=== PATIENT | female | born 1985 | race Two or more races ===

== ENCOUNTER 2017-09-10 03:40 | Emergency (ER) | payer OTHER ==
[2017-09-10] MEDS ORDERED: TDAP ADULT 0.5 ML INJ (BOOSTRIX) IM ONE (04:30)
--- NOTE | 2017-09-10 04:32 | EDPHY ---
H & P Stated Complaint: LACERATION TO HEAD Time Seen by Provider: 09/10/17 04:06 HPI/ROS: HPI The patient presents with head injury which occurred at 3:30 a.m. this morning. 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 She did not lose consciousness, does not have any headache, nausea, vomiting, dizziness. She did have bleeding from her scalp and that is what brought her into the emergency department. She is unsure of her last tetanus vaccine. REVIEW OF SYSTEMS Constitutional: No fever, no chills. Skin: No rashes. Neurological: No headache. 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 PHYSICAL General Appearance: Alert, no distress Eyes: Pupils equal and round no pallor or injection Head: There is an abrasion to her occiput at the midline with small amount of active bleeding, no hematoma ENT, Mouth: Mucous membranes moist Respiratory: Breathing comfortably Neurological: A&O, moves all extremities Skin: Warm and dry, no rashes Musculoskeletal: Neck is supple non tender Extremities: symmetrical, full range of motion Psychiatric: Patient is oriented X 3, there is no agitation Source: Patient Exam Limitations: No limitations - Personal History Current Tetanus/Diphtheria Vaccine: No Current Tetanus Diphtheria and Acellular Pertussis (TDAP): No - Medical/Surgical History Hx Asthma: No Hx Chronic Respiratory Disease: No Hx Diabetes: No Hx Cardiac Disease: No Hx Renal Disease: No Hx Cirrhosis: No Hx Alcoholism: No Hx HIV/AIDS: No Hx Splenectomy or Spleen Trauma: No Other PMH: None - Social History Smoking Status: Never smoked Constitutional: Initial Vital Signs Temperature (C) 37.1 C 09/10/17 03:44 Heart Rate 80 09/10/17 03:44 Respiratory Rate 18 09/10/17 03:44 Blood Pressure 131/79 H 09/10/17 03:44 O2 Sat (%) 99 09/10/17 03:44 O2 Delivery Mode Room Air Allergies/Adverse Reactions: No Known Allergies Allergy (Verified 10/29/14 19:20) Home Medications: Medication Instructions Recorded Amphet Asp and D/Amphet [Adderall 10 mg PO DAILY 09/10/17 10 MG (*)] Medical Decision Making Differential Diagnosis: 32-year-old female presents from work with head injury, standing up in hitting her head on the corner of a bookshelf. By nexus 2 criteria, she does not meet criteria for CT scan of head. She has an abrasion of her scalp without any laceration or hematoma. Plan for update of her tetanus vaccine and have discussed wound care with her. Departure - Departure Disposition: Home, Routine, Self-Care Clinical Impression: Scalp abrasion Qualifiers: Encounter type: initial encounter Qualified Code(s): S00.01XA - Abrasion of scalp, initial encounter Head injury Qualifiers: Encounter type: initial encounter Qualified Code(s): S09.90XA - Unspecified injury of head, initial encounter Condition: Good Instructions: Scalp Contusion in Adults (ED) Referrals: Tavares Clarke MD [Primary Care Provider] - As per Instructions
[2017-09-10 04:44] VITALS: BP 126/76; PULSE 74; RESP 15; TEMP 98.2; O2SAT 95
== END 2017-09-10 04:43 | disposition home or self-care (01) ==
PROC: 3E0234Z Introduction of Serum, Toxoid and Vaccine into Muscle, Percutaneous Approach (ICD-10-PCS; principal; 2017-09-10)
DX: S00.01XA Abrasion of scalp, initial encounter (principal); Z23 Encounter for immunization; W22.8XXA Striking against or struck by other objects, initial encounter; Y99.0 Civilian activity done for income or pay; Y93.89 Activity, other specified